=== PATIENT | female | born 1975 | race Caucasian/White ===

== ENCOUNTER 2025-02-10 15:48 | Emergency (ER) | payer OTHER, SELFPAY ==
[2025-02-10 15:58] VITALS: BP 161/102
[2025-02-10 16:23] LABS: Hematocrit 38.3 % (37.0-47.0); Hemoglobin 13.1 g/dL (12.0-16.0); Mean Corp Hgb Conc. 34.2 g/dL (33.0-37.0); Mean Corpuscular Volume 86.8 fL (81.0-99.0); Nucleated Red Blood Cells % 0 %; Platelet Count 187 10^3/uL (130-400); Red Cell Dist. Width 14.2 % (11.5-14.5)
[2025-02-10 16:25] LABS: HCG, Urine Qualitative Screen Negative
[2025-02-10 16:36] LABS: ALT (SGPT) 16 U/L (0-35); AST (SGOT) 14 U/L (14-36); Albumin 3.8 g/dl (3.5-5.0); Alkaline Phosphatase 70 U/L (38-126); Blood Urea Nitrogen 16 mg/dl (7-17); Calcium 8.5 mg/dl (8.4-10.2); Carbon Dioxide 29 mmol/L (22-30); Chloride 104 mmol/L (98-107); Glucose 99 mg/dl (70-99); Potassium 4.4 mmol/L (3.5-5.1); Sodium 137 mmol/L (135-145); Total Protein 6.3 g/dl (6.3-8.2); eGFR > 60.00
[2025-02-10 16:46] LABS: Troponin I < 0.012 ng/ml
--- NOTE | 2025-02-10 18:06 | ED.GENMED ---
History of Present Illness
General
Chief Complaint: Chest Pain
Time Seen by Provider: 02/10/25 17:39
History of Present Illness
History of Present Illness:
49-year-old female with history of hypertension presents to the emergency department for evaluation of central chest pain that has been waxing waning for several days. She notes that it is worse when she twists her body to wipe on the toilet. She
also was concerned about her blood pressure as she does not currently have a primary care physician due to insurance issues hide ran out of her losartan earlier this week. Denies any shortness of breath, fever, or chills associated with this. No
trauma to the chest wall.
Past History
Past History
ED Past Medical History: Asthma, HTN and Other (IBS)
ED Past Surgical History: (�2) and Gynecological (3 elective abortions)
Social History
Tobacco: Smoker
Alcohol: None
Drug: None
Personal:
Living: with family
Employment: Employed
Family History
Family History: Other (Noncontributory)
Review of Systems
Review of Systems
Allergies reviewed?: Yes
All Other Systems: ROS reviewed and negative except as documented in HPI and ROS
Phy Exam
Physical Exam
Physical Exam:
GEN: Well appearing, NAD, WDWN
HEENT: Oral mucosa moist, no scleral icterus
Cardiac: Regular rate and rhythm, no murmurs
Lung: No respiratory distress, no tachypnea, lungs clear to auscultation bilaterally
MSK: No gross deformity or injuries
Skin: Good color, no pallor or jaundice, no rashes
Neuro: AO x3, moves all extremities freely
Psych: Calm, cooperative
Scores
Heart Score for Chest Pain Patients
STEMI patient?: No
History: Slightly or Non-Suspicious
ECG: Normal
Age: >45 - <65 years
Risk Factors: 1 or 2 Risk Factors
Troponin: </= Normal Limit
Heart Score for Chest Pain Patients: 2
Heart Score Risk: 2.5% MACE over next 6 weeks
Course
Orders/Labs/Results
Orders:
Orders
02/10/25 15:49
ECG [Electrocardiogram (*1)] Urgent
Reason for Study: Chest Pain
EKG- Treatment ONCE
02/10/25 16:01
Test Result ONCE
02/10/25 16:03
Chest [CR Chest - 2 Views ] Urgent
Comment:
Reason For Exam: chest pain, SOB
02/10/25 16:13
Complete Blood Count/With Diff Urgent
Comprehensive Metabolic Panel Urgent
, Urine Qualitative Screen [HCG, Urine Qualitative Screen] Urgent
Date Specimen was Collected: 02/10/25
Time Specimen was Collected: 16:01
Pro-BNP [NT-proBNP] Urgent
Troponin I Urgent
02/10/25 16:13
02/10/25 16:13
Vital Signs
Initial and Last Documented VS:
Initial Vital Signs
Temp Pulse Resp BP Pulse Ox
98.7 F 72 18 161/102 97
02/10/25 15:58 02/10/25 15:58 02/10/25 15:58 02/10/25 15:58 02/10/25 15:58
Last Documented Vital Signs
Temp Pulse Resp BP Pulse Ox
98.7 F 72 18 161/102 97
02/10/25 15:58 02/10/25 15:58 02/10/25 15:58 02/10/25 15:58 02/10/25 18:06
MDM/Problems Addressed
MDM/Problems Addressed:
EKG is unremarkable and troponins are negative. The patient has clearly reproducible chest pain on exam and given the positional nature of it I have no suspicion for ACS or PE rather this is likely musculoskeletal or inflammatory chest wall pain.
Discussed use of NSAIDs and provided her with a refill for her antihypertensives
*Pulse Oximetry
SaO2: 97
Oxygen Mode of Delivery: Room air
Patient hypoxic: no
*Critical Care Note
Total Time (30-74mins, 75-104mins- exclusive of procedures): Not Applicable
ED Attending Note
-
Portions of this chart may have been created with voice recognition software.� Occasional wrong word or��sound alike� substitutions may have occurred due to the inherent limitations of voice recognition software.
Discharge Plan
Departure
Patient Disposition: Home (Routine Discharge)
Date of Disposition: 02/10/25
Time of Disposition: 18:06
Patient with high blood pressure during this ER visit?: No
Discharge Problem:
Atypical chest pain
Instructions: Chest Pain That Is Not Caused by the Heart (DC)
Prescriptions:
New
diclofenac sodium 75 mg tablet,delayed release (DR/EC)
75 mg PO BID PRN (Reason: Pain) Qty: 20 0RF
losartan 25 mg tablet
25 mg PO DAILY Qty: 30 0RF
Referrals:
Lakshmi Dale MD [Family Provider, Family Practice]
Interventions
Interventions:
*Risk Screen - Suicide Last Done: 02/10/25 15:58
*General Assessment Last Done: 02/10/25 15:58
*Neglect/Abuse Screening Last Done: 02/10/25 15:58
*ED- Fall Risk Assessment Last Done: 02/10/25 18:29
*ED COVID-19 Vaccine History Last Done: 02/10/25 18:29
*Nursing Disposition Last Done: 02/10/25 18:36
ED- Cardiac Assessment Last Done: 02/10/25 18:29
Discharge Date and Time
Discharge Date/Time: 02/10/25 18:36
Print Language: POLISH
== END 2025-02-10 18:36 | disposition home or self-care (01) ==
LOC: EMR 15:48
PROVIDERS: EMERGENCY PHYSICIAN Student in an Organized Health Care Education/Training Program; FAMILY PHYSICIAN Family Medicine
DX: R07.89 Other chest pain (principal); J45.909 Unspecified asthma, uncomplicated; I10 Essential (primary) hypertension; K58.9 Irritable bowel syndrome, unspecified; F17.200 Nicotine dependence, unspecified, uncomplicated; Z98.891 History of uterine scar from previous surgery
CPT/HCPCS: 99283; 71046; 80053; 81025; 83880; 84484; 85025; 93005